=== PATIENT | female | born 1945 | race Two or more races ===

== ENCOUNTER 2018-01-26 07:34 | Outpatient (CLI) | payer OTHER ==
[~2018-01-26 07:34] MED LIST: MICARDIS40 MG; SYNTHROID75 MCG
== END 2018-01-26 10:07 | disposition home or self-care (01) ==
LOC: NUCLEAR 07:34
DX: I25.10 Atherosclerotic heart disease of native coronary artery without angina pectoris (principal)
CPT/HCPCS: 78452; 93017; A9500; J0153

== ENCOUNTER 2020-05-25 07:58 | Outpatient (CLI) | payer OTHER | END 2020-05-25 13:40 | disposition home or self-care (01) | LOC: NUCLEAR 07:58 | PROVIDERS: ATTEND Internal Medicine Cardiovascular Disease | DX: I11.9 Hypertensive heart disease without heart failure (principal); E78.00 Pure hypercholesterolemia, unspecified; I20.8 Other forms of angina pectoris | CPT/HCPCS: 78452; 93017; A9500; J0153 ==

== ENCOUNTER 2022-07-31 10:28 | Outpatient (CLI) | payer OTHER | END 2022-07-31 10:37 | disposition home or self-care (01) | LOC: LAB 10:28 | PROVIDERS: ATTEND Internal Medicine Hematology & Oncology | DX: D50.8 Other iron deficiency anemias (principal); R79.9 Abnormal finding of blood chemistry, unspecified; I10 Essential (primary) hypertension; R74.02 Elevation of levels of lactic acid dehydrogenase [LDH]; K76.89 Other specified diseases of liver; D47.2 Monoclonal gammopathy; C90.00 Multiple myeloma not having achieved remission; D63.8 Anemia in other chronic diseases classified elsewhere; R71.8 Other abnormality of red blood cells ==

== ENCOUNTER 2023-01-29 10:47 | Outpatient (CLI) | payer OTHER ==
[2023-01-30] MEDS ORDERED: PROTONIX40 MG PO (13:30)
[2023-01-30] MEDS ORDERED: PROTONIX PO (13:30)
[2023-01-30] MEDS ORDERED: CRESTOR5 MG PO (13:31)
[2023-01-30] MEDS ORDERED: FOLIC A PO (13:31)
[2023-01-30] MEDS ORDERED: NIAC (13:32)
[2023-01-30] MEDS ORDERED: TOPROL XL25 M1 PO (13:32)
[2023-01-30] MEDS ORDERED: IRO PO (13:33)
[2023-01-30] MEDS ORDERED: [UNRECOGNIZED DRUG - OTHER] (13:34)
== END 2023-01-29 10:55 | disposition home or self-care (01) ==
LOC: EKG 10:47
PROVIDERS: ATTEND Specialist
DX: C90.00 Multiple myeloma not having achieved remission (principal); I10 Essential (primary) hypertension

== ENCOUNTER 2023-02-03 07:48 | Day surgery (SDC) | payer OTHER ==
[~2023-02-03 07:48] MED LIST changes: +CRESTOR5 MG PO; +FOLIC A PO; +IRO PO; +NIAC; +PROTONIX PO; +PROTONIX40 MG PO; +TOPROL XL25 M1 PO; +[UNRECOGNIZED DRUG - OTHER]
== END 2023-02-03 17:55 | disposition home or self-care (01) ==
LOC: CIR.AMB 07:48
PROVIDERS: ATTEND Specialist
DX: C90.00 Multiple myeloma not having achieved remission (principal); Z20.822 Contact with and (suspected) exposure to COVID-19

== ENCOUNTER 2023-05-01 09:52 | Inpatient (IN) | payer OTHER ==
[~2023-05-01] VITALS: Ht 157.5 cm; Wt 65.8 kg
--- NOTE | 2023-05-01 10:23 | NUR ---
PTE REFIERE DOLOR ABDOMNIAL Y DOLOR MUSCULAR. 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
[2023-05-01 15:25] LABS: MEAN CELL VOLUME 100.8 fL (80.00-100.00); MEAN CORPUSCULAR HGB CONC 33.3 g/dl (32.0-36.0); RED BLOOD COUNT 1.48 M/uL (4.00-6.00)
[2023-05-01 15:35] LABS: MEAN CORPUSCULAR HEMOGLOBIN 33.7 pg (27.00-32.0)
[2023-05-01 15:37] LABS: HEMATOCRIT 14.9 % (36.0-45.00); PLATELET COUNT 32 K/uL (150-450)
[2023-05-01 15:38] LABS: RED CELL DISTRIBUTION WIDTH 20.4 % (11.5-14.5)
[2023-05-02 01:45] LABS: MEAN CELL VOLUME 100.1 fL (80.00-100.00); MEAN CORPUSCULAR HGB CONC 33.6 g/dl (32.0-36.0); RED BLOOD COUNT 2.26 M/uL (4.00-6.00)
[2023-05-02 03:06] LABS: HEMATOCRIT 22.6 % (36.0-45.00); HEMOGLOBIN 7.6 g/dL (12.0-15.00); MEAN CORPUSCULAR HEMOGLOBIN 33.6 pg (27.00-32.0)
[2023-05-02 03:07] LABS: PLATELET COUNT 50 K/uL (150-450)
[2023-05-03 03:10] LABS: MEAN CORPUSCULAR HGB CONC 31.9 g/dl (32.0-36.0); RED BLOOD COUNT 1.92 M/uL (4.00-6.00); RED CELL DISTRIBUTION WIDTH 21.2 % (11.5-14.5)
[2023-05-03 03:11] LABS: MEAN CORPUSCULAR HEMOGLOBIN 32.2 pg (27.00-32.0)
[2023-05-03 03:12] LABS: HEMATOCRIT 19.6 % (36.0-45.00); HEMOGLOBIN 6.2 g/dL (12.0-15.00); PLATELET COUNT 117 K/uL (150-450)
== END 2023-05-03 14:54 | disposition expired | DRG 840 ==
LOC: ER 09:52 → MEDJ 16:00 → SEC-K 16:00 → MEDJ 16:12 → ICU 05-03 08:33
PROVIDERS: General Practice; Internal Medicine Hematology & Oncology; ADMIT Specialist; ATTEND Specialist
PROC: 8E0ZXY6 Isolation (ICD-10-PCS; principal; 2023-05-01)
PROC: B54BZZZ Ultrasonography of Right Lower Extremity Veins (ICD-10-PCS; 2023-05-01)
PROC: 30243R1 Transfusion of Nonautologous Platelets into Central Vein, Percutaneous Approach (ICD-10-PCS; 2023-05-02)
PROC: 0BH17EZ Insertion of Endotracheal Airway into Trachea, Via Natural or Artificial Opening (ICD-10-PCS; 2023-05-03)
PROC: 5A1935Z Respiratory Ventilation, Less than 24 Consecutive Hours (ICD-10-PCS; 2023-05-03)
PROC: 5A12012 Performance of Cardiac Output, Single, Manual (ICD-10-PCS; 2023-05-03)
PROC: 4A12X4Z Monitoring of Cardiac Electrical Activity, External Approach (ICD-10-PCS; 2023-05-03)
DX: C90.00 Multiple myeloma not having achieved remission (principal); J96.01 Acute respiratory failure with hypoxia; R78.81 Bacteremia; D61.818 Other pancytopenia; I82.491 Acute embolism and thrombosis of other specified deep vein of right lower extremity; I46.9 Cardiac arrest, cause unspecified; D63.0 Anemia in neoplastic disease; D64.81 Anemia due to antineoplastic chemotherapy; D69.59 Other secondary thrombocytopenia; I10 Essential (primary) hypertension; E03.9 Hypothyroidism, unspecified; Z66 Do not resuscitate; B96.5 Pseudomonas (aeruginosa) (mallei) (pseudomallei) as the cause of diseases classified elsewhere; B96.6 Bacteroides fragilis [B. fragilis] as the cause of diseases classified elsewhere